=== PATIENT | male | born 1995 | race Caucasian/White ===

== ENCOUNTER 2017-03-08 15:09 | Emergency (ER) | payer OTHER ==
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
[2017-03-08] MEDS ORDERED: fentaNYL 100 MCG/2 ML SDV ONE (16:00)
[2017-03-08] MEDS ORDERED: Midazolam 1 MG/ML 5 ML SDV ONE (16:00)
[2017-03-08] MEDS ORDERED: Rocuronium 50 MG/5 ML Vial ONE (16:00)
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
--- NOTE | 2017-03-09 08:06 | CR ---
Pelvis: AP view of the pelvis was obtained. Comparison: No previous study. Fracture is identified within the superior left pubic ramus. Transitional segment is seen at the lumbosacral junction with pseudoarticulation of an enlarged transverse process to the sacrum on the left side. No additional fracture or other abnormality is appreciated. Impression: 1. Fracture within the superior left pubic ramus. This is usually accompanied by a second fracture which is not definitely appreciated on this study. 2. Incidental note of transitional segment at the lower lumbar spine on the left side. Diagnostic code #3
== END 2017-03-08 16:05 ==
LOC: MERGE 15:09 → JD.ED 15:09 → EDBD 15:20 → JD.ED 15:20
DX: S06.9X9A Unspecified intracranial injury with loss of consciousness of unspecified duration, initial encounter (principal); S32.592A Other specified fracture of left pubis, initial encounter for closed fracture; S27.322A Contusion of lung, bilateral, initial encounter; S80.811A Abrasion, right lower leg, initial encounter; S80.812A Abrasion, left lower leg, initial encounter; V58.6XXA Passenger in pick-up truck or van injured in noncollision transport accident in traffic accident, initial encounter; Y92.410 Unspecified street and highway as the place of occurrence of the external cause
CPT/HCPCS: 31500; 36415; 51702; 71010; 72170; 80053; 85025; 86850; 86900; 86901; 99291; 99292; G0390; G0480; J2250; J3010